=== PATIENT | male | born 1965 ===

== ENCOUNTER 2018-06-16 12:52 | Day surgery (SDC) | payer OTHER ==
[~2018-06-16] VITALS: Ht 190.5 cm; Wt 102.3 kg
== END 2018-06-16 15:23 | disposition home or self-care (01) ==
LOC: ORSCSDS 12:52
PROVIDERS: Surgery
PROC: 0DBH8ZX Excision of Cecum, Via Natural or Artificial Opening Endoscopic, Diagnostic (ICD-10-PCS; principal; 2018-06-16 14:15)
DX: Z12.11 Encounter for screening for malignant neoplasm of colon (principal); D12.0 Benign neoplasm of cecum; Z83.71 Family history of colonic polyps; Z87.891 Personal history of nicotine dependence
CPT/HCPCS: 88305; J7120